=== PATIENT | female | born 1965 | race Two or more races ===

== ENCOUNTER → 2016-08-18 | Outpatient (CLI) | payer MEDICAID | LOC: FIMAGING 11:09 | PROVIDERS: ATTEND Nurse Practitioner | DX: Z13.820 Encounter for screening for osteoporosis (principal); Z85.3 Personal history of malignant neoplasm of breast ==

== ENCOUNTER → 2017-02-25 | Outpatient (CLI) | payer MEDICAID | LOC: FIMAGING 07:24 | PROVIDERS: ATTEND Obstetrics & Gynecology | DX: R10.31 Right lower quadrant pain (principal); Z90.721 Acquired absence of ovaries, unilateral; Z90.710 Acquired absence of both cervix and uterus ==

== ENCOUNTER → 2018-05-04 | Outpatient (CLI) | payer MEDICAID | LOC: FIMAGING 14:33 | PROVIDERS: ATTEND Obstetrics & Gynecology | DX: R10.2 Pelvic and perineal pain (principal) ==

== ENCOUNTER → 2018-05-27 | Outpatient (CLI) | payer MEDICAID | LOC: FIMAGING 13:37 | PROVIDERS: ATTEND Internal Medicine Hematology & Oncology | DX: M79.602 Pain in left arm (principal); Z85.3 Personal history of malignant neoplasm of breast; Z90.13 Acquired absence of bilateral breasts and nipples; Z98.82 Breast implant status ==